=== PATIENT | female | born 1950 | race Caucasian/White ===

== ENCOUNTER 2021-02-12 19:39 | Inpatient (IN) | payer MEDICARE, OTHER ==
[~2021-02-12] VITALS: Ht 154.9 cm; Wt 63.5 kg
[~2021-02-12 19:39] MED LIST: ACET325T53 PO; ASPI-1169 PO; ATOR10TA PO; BISA10SU11 RC; CHOL500062 PO; CLON0.1T PO; CRAN425C6 PO; DOCU-141 PO; INSU100I47 SUBCUT; INSU100V7 SQ; MAGN400O6 PO; MULT-447 PO; NA P133E RC; NIFE60TA2 PO; NUT.237L67 PO; OMEG1CAP PO; VITA100014 PO
--- NOTE | 2021-02-12 19:45 | NUR ---
PATIENT [facility] to ER; sent by SNF - reports coffee ground vomitus x 3 today. PATINET ALERT TO NAME, NON VERBAL. RR EVEN AND UNLABORED. PATIENT CONNECTED TO COMPENSATION AND BENEFITS MANAGER AND POX. WILL CONTINUE TO MONITOR.
--- NOTE | 2021-02-12 19:50 | NUR ---
F/C APPILED Fr 16, URINE OUTPUT 100CC, YELLOW CLEAR COLOR.
[2021-02-12] MEDS ORDERED: FAMOTIDINE/PF INJ 20 MG/2 ML VIAL IV ONE ×2 (20:00→20:03)
[2021-02-12] MEDS ORDERED: PANTOPRAZOLE 40 MG VIAL IV ONE (20:00)
[2021-02-12] MEDS ORDERED: IV NS 0.9% 1,000 ML BAG IV ONE (20:00)
[2021-02-12] MEDS ORDERED: ONDANSETRON HCL/PF 4 MG/2 ML VIAL IVP ONE (20:00)
[2021-02-12] MEDS ORDERED: PANTOPRAZOLE 40 MG VIAL ONE (20:03)
[2021-02-12] MEDS ORDERED: ONDANSETRON HCL/PF 4 MG/2 ML VIAL ONE (20:03)
[2021-02-12 20:19] LABS: BASOPHILS % (AUTO) 0.3 % (0.0-2.0); EOSINOPHILS % (AUTO) 0.7 % (0.0-6.0); HEMATOCRIT 33 % (33-45); HEMOGLOBIN 11.3 g/dL (11.5-14.8); LYMPHOCYTES # (AUTO) 1.5 K/uL (0.8-4.8); LYMPHOCYTES % (AUTO) 15.9 % (20.0-44.0); MEAN CORPUSCULAR HGB CONC 34 g/dl (31.0-36.0); MEAN CORPUSCULAR VOLUME 87 fL (82-100); MONOCYTES # (AUTO) 0.7 K/uL (0.1-1.30); MONOCYTES % (AUTO) 7.4 % (2.0-12.0); NEUTROPHILS # (AUTO) 7.3 K/uL (1.8-8.9); NEUTROPHILS % (AUTO) 75.7 % (43.0-81.0); PLATELET COUNT (AUTO) 222 K/uL (150-450); RED BLOOD CELL COUNT(AUTO) 3.79 MIL/uL (4.0-5.2); WHITE BLOOD COUNT (AUTO) 9.6 K/uL (4.3-11.0)
--- NOTE | 2021-02-12 20:19 | NUR ---
X RAY AT BEDSIDE
[2021-02-12 20:30] LABS: CALCIUM, SERUM 9.2 mg/dL (8.5-10.1); CARBON DIOXIDE 32 mmol/L (21-32); CHLORIDE 114 mmol/L (98-107); CREATININE 2.1 mg/dL (0.6-1.3); GLUCOSE 136 mg/dL (74-106); POTASSIUM 4.1 mmol/L (3.5-5.1); SODIUM SERUM 153 mmol/L (136-145); UREA NITROGEN, BLOOD 33 mg/dL (7-18)
--- NOTE | 2021-02-12 20:32 | NUR ---
called Dr. Whittington - - called - not recreational assistant - [facility] is covering
--- NOTE | 2021-02-12 20:35 | NUR ---
called [facility] - called via exchange
[2021-02-12 20:36] LABS: ALANINE AMINOTRANSFERASE 20 U/L (12-78); ALBUMIN 3.1 g/dL (3.4-5.0); ALKALINE PHOSPHATASE 58 U/L (46-116); ASPARTATE AMINOTRANSFERASE 21 U/L (15-37); BILIRUBIN,DIRECT 0.2 mg/dL (0.0-0.2); BILIRUBIN,TOTAL 0.7 mg/dL (0.2-1.0); LIPASE 31 U/L (73-393); TOTAL PROTEIN, SERUM 6.9 g/dL (6.4-8.2)
--- NOTE | 2021-02-12 20:50 | NUR ---
accepted by Shonda PAIGE
--- NOTE | 2021-02-12 20:50 | NUR ---
Report given to the floor nurse JAGJIT FREEMAN PCR - pending
[2021-02-12] MEDS ORDERED: CEFTRIAXONE 1GM BAG (ER ONLY) 1 GM/50 ML PIGGYBACK IV ONE (21:00)
[2021-02-12 21:02] LABS: BILIRUBIN,URINE SMALL (NEGATIVE); COLOR,URINE YELLOW (YELLOW); LEUKOCYTE ESTERASE ,URINE TRACE (NEGATIVE); NITRITE, URINE NEGATIVE (NEGATIVE); PH,URINE 7.5 (5.0-8.0); PROTEIN,URINE >=300 mg/dl (NEGATIVE); UGLUCOSE NEGATIVE (NEGATIVE); UROBILINOGEN,URINE 0.2 EU/dL (0.2)
[2021-02-12 21:20] VITALS: BP 134/80
--- NOTE | 2021-02-12 21:20 | NUR ---
MS NURSE NOTE PT TRANSPORTED VIA GURNEY TO UNIT AT THIS TIME. PT ADMITTED TO MED SURG FROM ER FOR GI BLEED. PT IS IN BED WITH EYES CLOSED, AROUSABLE TO VERBAL STIMULATION. A/O X1 TO NAME. PT IS STABLE ON ROOM AIR. NO SOB OR S/S OF RESPIRATORY DISTRESS NOTED. NO S/O PAIN SUCH FACIAL GRIMACING NOTED. IV ACCESS IN RIGHT WRIST #20, INTACT AND PATENT. GARCIA CATH IN PLACE DRAINING CLEAR YELLOW URINE. SAFETY AND ASPIRATION PRECAUTIONS MAINTAINED. BED IN LOWEST LOCKED POSITION, HOB ELEVATED, SIDE RAILS UP X3, BED ALARM ON. CALL LIGHT AND TABLE WITHIN REACH. WILL CONTINUE TO MONITOR.
[2021-02-12 21:27] LABS: BACTERIA,URINE RARE /HPF (None Seen)
[2021-02-12] MEDS ORDERED: CEFTRIAXONE 1GM BAG (ER ONLY) 50 ML IV ONE (21:44)
[2021-02-12] MEDS ORDERED: CLONIDINE HCL 0.1 MG TABLET PO PRN (22:00)
[2021-02-12] MEDS ORDERED: IV NS 0.9% 1,000 ML IV PRN (22:00)
[2021-02-12] MEDS ORDERED: Z GUARD REMEDY 2 OZ OINT TP PRN (22:00)
[2021-02-12] MEDS ORDERED: ZOLPIDEM TARTRATE 5 MG TABLET PO PRN (22:00)
[2021-02-12] MEDS ORDERED: ONDANSETRON HCL/PF 4 MG/2 ML VIAL IVP PRN (22:00)
[2021-02-12] MEDS ORDERED: BISACODYL SUPP (10 MG) 10 MG/SUPP.RECT SUPP.RECT RC PRN (22:00)
[2021-02-12] MEDS ORDERED: MAG HYDROX/AL HYDROX/SIMETH 30 ML UDC PO PRN (22:00)
[2021-02-12] MEDS ORDERED: MAGNESIUM HYDROXIDE 30 ML UDC PO PRN ×2 (22:00)
[2021-02-12] MEDS ORDERED: ACETAMINOPHEN 325 MG TABLET PO PRN ×2 (22:00)
[2021-02-12] MEDS ORDERED: NA PHOS,M-B/NA PHOS,DI-BA 1 EA ENEMA RC PRN (22:00)
[2021-02-12] MEDS: ATORVASTATIN 10 MG TABLET PO SCH (22:48)
[2021-02-13] MEDS ORDERED: DEXTROSE 50%-WATER 50 ML DISP.SYRIN IV PRN (03:00)
[2021-02-13] MEDS ORDERED: IV 1/2NS 1000 ML 1,000 ML IV PRN (03:00)
[2021-02-13 04:39] VITALS: BP 154/65
[2021-02-13 05:00] VITALS: BP 154/65
--- NOTE | 2021-02-13 06:07 | NUR ---
MS RN CLOSING NOTE PT IS IN BED WITH EYES CLOSED, AROUSABLE TO STIMULATION. A/O X1. PT IS STABLE ON ROOM AIR. NO SOB OR S/S OF RESPIRATORY DISTRESS NOTED. IV ACCESS IS INTACT, PATENT, AND FLUSHING WELL. ALL NEEDS HAVE BEEN MET. SAFEY AND ASPIRATION PRECAUTIONS MAINTAINED AT ALL TIMES. BED IN LOWEST LOCKED POSITION, HOB ELEVATED, SIDE RAILS UP X2, BED ALARM ON. WILL ENDORSE TO ONCOMING NURSE FOR ERYN.
[2021-02-13 06:39] LABS: BASOPHILS % (AUTO) 0.4 % (0.0-2.0); EOSINOPHILS % (AUTO) 1.8 % (0.0-6.0); HEMATOCRIT 30 % (33-45); HEMOGLOBIN 9.8 g/dL (11.5-14.8); LYMPHOCYTES # (AUTO) 1.6 K/uL (0.8-4.8); LYMPHOCYTES % (AUTO) 22.4 % (20.0-44.0); MEAN CORPUSCULAR HGB CONC 33 g/dl (31.0-36.0); MEAN CORPUSCULAR VOLUME 89 fL (82-100); MONOCYTES # (AUTO) 0.7 K/uL (0.1-1.30); MONOCYTES % (AUTO) 9.6 % (2.0-12.0); NEUTROPHILS # (AUTO) 4.8 K/uL (1.8-8.9); NEUTROPHILS % (AUTO) 65.8 % (43.0-81.0); PLATELET COUNT (AUTO) 168 K/uL (150-450); RED BLOOD CELL COUNT(AUTO) 3.31 MIL/uL (4.0-5.2); WHITE BLOOD COUNT (AUTO) 7.3 K/uL (4.3-11.0)
[2021-02-13 07:19] LABS: CALCIUM, SERUM 8.5 mg/dL (8.5-10.1); MAGNESIUM 1.8 mg/dL (1.8-2.4); POTASSIUM 4.1 mmol/L (3.5-5.1)
--- NOTE | 2021-02-13 07:30 | NUR ---
RN NOTE PATIENT OBSERVED IN BED, AWAKE, NONVERBAL, BREATHING EVEN AND UNLABORED, ON IVF / NS @ 90CC INFUSING WELL, HOB ELEVATED, NO N&V NOTED, WILL CONTINUE TO MONITOR PATIENT, SAFETY MEASURES OBSERVED, BED WHEELS LOCK, CALL LIGHT WITHIN REACH.
[2021-02-13] MEDS: INSULIN REGULAR, HUMAN 100 UNIT/ML 3 ML VIAL SQ PRN ×4 (08:40→23:27)
[2021-02-13] MEDS: BLOOD SUGAR DIAGNOSTIC 1 EACH STRIP IN SCH ×4 (08:41→22:30)
[2021-02-13] MEDS: NEPRO VAN 237 ML CAN PO SCH (09:00)
[2021-02-13] MEDS ORDERED: VITAMIN A 10,000 UNIT CAPSULE PO SCH (09:00)
[2021-02-13] MEDS: CHOLECALCIFEROL 1,000 UNIT TABLET (VIT D3) PO SCH (09:00)
[2021-02-13] MEDS ORDERED: ASPIRIN 81 MG TAB.CHEW PO SCH (09:00)
[2021-02-13] MEDS: NIFEdipine XL (30MG) 30 MG TAB PO SCH (09:00)
[2021-02-13] MEDS ORDERED: Medication Not On Formulary EA (Omega-3 Fatty Acids/Fish Oil (Fish Oil 1,000 Mg Capsule) PO SCH (09:00)
[2021-02-13] MEDS: DOCUSATE SODIUM 100 MG CAPSULE PO SCH (09:00)
--- NOTE | 2021-02-13 09:40 | NUR ---
RN NOTE PATIENT ON NPO AT THIS TIME, SHEET TESTER MÓNICA BALDWIN NOTIFIED, HOLD MEDICATION ORDERED, PATIENT ON IVF HYDRATION.
[2021-02-13] MEDS: PANTOPRAZOLE 40 MG VIAL IV SCH ×2 (09:47→22:53)
--- NOTE | 2021-02-13 09:55 | NUR ---
RN NOTE PATIENT AWAKE, RESPONSE VERBALLY AT THIS TIME, A/O X1, NOT IN DISTRESS, WILL CONTINUE TO MONITOR.
[2021-02-13] MEDS: IV D5/0.45 NACL 1,000 ML IV PRN ×2 (12:45→22:53)
[2021-02-13 16:00] VITALS: BP 148/80
--- NOTE | 2021-02-13 18:31 | NUR ---
RN NOTE PATIENT OBSERVED IN BED, AWAKE AND VERBALLY RESPONSIVE, ALERT AND ORIENTED X1, BREATHING EVEN AND UNLABORED, ON ROOM AIR O2 SAT OF 98%, NO PAIN OBSERVED, MADE COMFORTABLE, PATIENT ON NPO AT THIS TIME FOR ASPIRATION PRECAUTION, AFEBRILE AT THIS TIME, NO BLEEDING NOTED, NO NAUSEA AND VOMITING EPISODE DURING THE SHIFT, FOR OCCULT BLOOD TEST, NO BM DURING THE SHIFT, WILL ENDORSE TO NOC SHIFT TO COLLECT, ON IVF HYDRATION D5NS @100CC/HR IV SITE PATENT INFUSING WELL, ON GARCIA CATHETER DRAINING WELL VIA GRAVITY NO HEMATURIA NOTED, WILL CONTINUE TO MONITOR, BED WHEELS LOCK, HOB ELEVATED, CALL LIGHT WITHIN REACH, SAFETY MEASURES OBSERVE, CALL LIGHT WITHIN REACH.
[2021-02-13 20:00] VITALS: BP 128/67
[2021-02-13] MEDS: ATORVASTATIN 10 MG TABLET PO SCH (22:00)
[2021-02-13] MEDS: CEFTRIAXONE 1 G in IV D5W 50 ML IV SCH (22:55)
--- NOTE | 2021-02-14 04:35 | NUR ---
patient npo awake alert x1 has d51/2ns infusing at 100 hr. blood sugar 2200 174 covered with 3 units reg insulin s.q. has f/c draining yellow urine. on ra sat 95%
--- NOTE | 2021-02-14 07:12 | NUR ---
blood sugar 0630 188 not covered yet due at 0730
[2021-02-14 07:29] LABS: BASOPHILS % (AUTO) 0.4 % (0.0-2.0); EOSINOPHILS % (AUTO) 4.7 % (0.0-6.0); HEMATOCRIT 28 % (33-45); HEMOGLOBIN 9.5 g/dL (11.5-14.8); LYMPHOCYTES # (AUTO) 1.7 K/uL (0.8-4.8); LYMPHOCYTES % (AUTO) 25.4 % (20.0-44.0); MEAN CORPUSCULAR HGB CONC 34 g/dl (31.0-36.0); MEAN CORPUSCULAR VOLUME 88 fL (82-100); MONOCYTES # (AUTO) 0.6 K/uL (0.1-1.30); MONOCYTES % (AUTO) 9.5 % (2.0-12.0); PLATELET COUNT (AUTO) 144 K/uL (150-450); RED BLOOD CELL COUNT(AUTO) 3.18 MIL/uL (4.0-5.2); WHITE BLOOD COUNT (AUTO) 6.7 K/uL (4.3-11.0)
[2021-02-14 07:47] LABS: CALCIUM, SERUM 8.4 mg/dL (8.5-10.1); CREATININE 1.5 mg/dL (0.6-1.3); MAGNESIUM 1.6 mg/dL (1.8-2.4); PHOSPHORUS 2.5 mg/dL (2.5-4.9); POTASSIUM 3.7 mmol/L (3.5-5.1)
[2021-02-14 08:19] VITALS: BP 167/73
[2021-02-14] MEDS: BLOOD SUGAR DIAGNOSTIC 1 EACH STRIP IN SCH ×4 (08:21→22:16)
[2021-02-14] MEDS: CHOLECALCIFEROL 1,000 UNIT TABLET (VIT D3) PO SCH (09:00)
[2021-02-14] MEDS: NIFEdipine XL (30MG) 30 MG TAB PO SCH (09:00)
[2021-02-14] MEDS: DOCUSATE SODIUM 100 MG CAPSULE PO SCH (09:00)
[2021-02-14] MEDS: NEPRO VAN 237 ML CAN PO SCH (09:00)
[2021-02-14] MEDS ORDERED: Magnesium 1GM/D5W 100ML PREMIX 100 ML IV SCH (09:30)
[2021-02-14] MEDS: INSULIN REGULAR, HUMAN 100 UNIT/ML 3 ML VIAL SQ PRN ×3 (10:06→22:27)
[2021-02-14] MEDS: IV D5/0.45 NACL 1,000 ML IV PRN (10:13)
[2021-02-14] MEDS: PANTOPRAZOLE 40 MG VIAL IV SCH ×2 (10:13→20:20)
--- NOTE | 2021-02-14 16:13 | NUR ---
MS/RN NOTES DR. ELIZALDE RECOMMENDING PATIENT TO HAVE EGD TUBE PLACEMENT DUE TO PATIENT UNABLE TO SWALLOW ANYTHING VIA MOUTH. RN TOGETHER WITH CHARGE NURSE DUY, CALLED AND NOTIFIED PATIENT'S DAUGHTER ROHAN AND EXPLAINED THAT WE NEEDS CONSENTS. PER ROHAN, SHE CANNOT DECIDE AND GIVE APPROVAL FOR NOW. SHE WANTED FOR US TO GIVE HER TIME TO DECIDE. CHARGE NURSE NOTIFIED OPERATING ROOM TO NOTIFY DR. ELIZALDE OF THE SITUATION. WILL CONTINUE TO MONITOR.
--- NOTE | 2021-02-14 17:00 | NUR ---
MS/RN NOTES PATIENT WILL UNDERGO EGD WITH DR. ELIZALDE. DAUGHTER AGREED TO THE PROCEDURE. ALL CONSENTS SIGNED. PATIENT PICKED UP BY SCREEN MAKING SUPERVISOR FOR THE PROCEDURE.
[2021-02-14] MEDS ORDERED: hydrALAZINE HCL IV 20 MG VIAL ONE (17:24)
[2021-02-14] MEDS: SUCRALFATE 1 G/10 ML UDC GT SCH ×2 (17:30→22:00)
--- NOTE | 2021-02-14 19:00 | NUR ---
MS/RN CLOSING NOTES PATIENT CAME BACK FROM THE OR POST EGD. PATIENT IS DROWSY, EASILY AWAKE BY VERBAL CUES. ALERT X1. STABLE ON ROOM AIR. V/S TAKEN RECORDED- BP-135/60, RR-18, T-98.1, HR-85, 97% RA. NO DISTRESS NO PAIN REPORTED AT THIS TIME. SAFETY PRECAUTIONS IN PLACED. BED LOCKED ON LOWEST POSITION, SIDE RAILS UPX3, CALL LIGHT WITHIN EASY REACH, BED ALARM ON. WILL ENDORSE TO THE NEXT SHIFT FOR CONTINUITY OF CARE.
--- NOTE | 2021-02-14 19:10 | NUR ---
RN NOTE RECEIVED PATIENT IN BED RESTING ALERT ORIENTED X1 VERBALLY RESPONSIVE ON ROOM AIR O2:98% IV SITE IS ON RIGHT FOREARM INTACT PATENT ON IV HYDRATION D51/2NS 100 CC/HR NPO INCONTINENT TO BOWEL/BLADDER, ON GARCIA CATHETER URINE DRAINING YELLOW/CLEAR BY GRAVITY,SAFETY MEASURE IMPLEMENT BED IN LOW POSITION AND LOCKED BED ALARM IS ON CONTINUE TO MONITOR.
[2021-02-14 20:00] VITALS: BP 104/68
[2021-02-14] MEDS: CEFTRIAXONE 1 G in IV D5W 50 ML IV SCH (20:20)
[2021-02-14] MEDS: ATORVASTATIN 10 MG TABLET PO SCH (22:00)
[2021-02-15] MEDS: IV D5/0.45 NACL 1,000 ML IV PRN (03:18)
[2021-02-15 06:34] LABS: BASOPHILS % (AUTO) 0.5 % (0.0-2.0); EOSINOPHILS % (AUTO) 1.5 % (0.0-6.0); HEMATOCRIT 28 % (33-45); HEMOGLOBIN 9.8 g/dL (11.5-14.8); LYMPHOCYTES # (AUTO) 1.4 K/uL (0.8-4.8); LYMPHOCYTES % (AUTO) 24.1 % (20.0-44.0); MEAN CORPUSCULAR HGB CONC 35 g/dl (31.0-36.0); MEAN CORPUSCULAR VOLUME 86 fL (82-100); MONOCYTES # (AUTO) 0.6 K/uL (0.1-1.30); MONOCYTES % (AUTO) 9.9 % (2.0-12.0); NEUTROPHILS # (AUTO) 3.8 K/uL (1.8-8.9); PLATELET COUNT (AUTO) 158 K/uL (150-450); RED BLOOD CELL COUNT(AUTO) 3.25 MIL/uL (4.0-5.2); WHITE BLOOD COUNT (AUTO) 5.9 K/uL (4.3-11.0)
[2021-02-15 06:52] LABS: CALCIUM, SERUM 8.5 mg/dL (8.5-10.1); CREATININE 1.7 mg/dL (0.6-1.3); MAGNESIUM 1.6 mg/dL (1.8-2.4); POTASSIUM 3.8 mmol/L (3.5-5.1)
--- NOTE | 2021-02-15 06:54 | NUR ---
RN NOTE PATIENT REMAINS ON ALERT ORIENTED X1 VERBALLY RESPONSIVE NO SOB NOT ACUTE DISTRESS NOTED SHE IS ON ROOM AIR O2:96% ON GARCIA CATHETER,NPO ALL IV MEDS GIVEN MD ORDERED HELD PO MEDS KEPT CLEAN AND DRY ALL THE TIME,ALL NEED MET ENDORSE NEXT COMING SHIFT FOR CONTINUATION OF CARE.
[2021-02-15] MEDS: BLOOD SUGAR DIAGNOSTIC 1 EACH STRIP IN SCH ×2 (07:30→11:34)
[2021-02-15] MEDS: PANTOPRAZOLE 40 MG VIAL IV SCH (08:10)
[2021-02-15] MEDS: DOCUSATE SODIUM 100 MG CAPSULE PO SCH (08:10)
[2021-02-15] MEDS: CHOLECALCIFEROL 1,000 UNIT TABLET (VIT D3) PO SCH (08:11)
[2021-02-15] MEDS: NIFEdipine XL (30MG) 30 MG TAB PO SCH (08:11)
[2021-02-15] MEDS: SUCRALFATE 1 G/10 ML UDC GT SCH ×2 (08:18→12:15)
[2021-02-15] MEDS: INSULIN REGULAR, HUMAN 100 UNIT/ML 3 ML VIAL SQ PRN ×2 (08:42→11:37)
[2021-02-15 09:00] VITALS: BP 110/72
[2021-02-15] MEDS ORDERED: PANT40TA2 PO (09:03)
[2021-02-15] MEDS ORDERED: SUCR1ORA6 GT (09:03)
[2021-02-15] MEDS: NEPRO VAN 237 ML CAN PO SCH (09:27)
[2021-02-15] MEDS ORDERED: LEVO500T90 PO (11:40)
[2021-02-15] MEDS ORDERED: Magnesium 1GM/D5W 100ML PREMIX 100 ML IV SCH (12:00)
[2021-02-15] MEDS ORDERED: MAGNESIUM OXIDE 400 MG TABLET PO ONE (12:30)
--- NOTE | 2021-02-15 14:35 | NUR ---
RN NOTES PATIENT REMAINS ALERT ORIENTED X2, DAUGHTER VISITED PT SPOKE AND MADE NEEDS KNOWN, NO SOB, NO ACUTE DISTRESS NOTED, ROOM AIR SAT AT 96% , GARCIA CATHETER INTACT, PT KEPT CLEAN AND DRY AND REPOSITIONED PT ALL NEEDS MET IN A TIMELY MANNER
--- NOTE | 2021-02-15 17:30 | NUR ---
RN NOTES PATIENT TRANSFERRED FROM [facility] TO [facility] BY 2 BLENDER SNUFF , PT ALERT AND ORIENTED X1, BREATHING EVEN AND UNLABORED, NO SOB NOTED, ON ROOM AIR O2 SAT OF 96%, NO PAIN OBSERVED, NO RESP DISTRESS NOTED, MADE COMFORTABLE, CONSUMED 50% OF MEAL NO ASPIRATION NOTED , AFEBRILE AT THIS TIME, NO BLEEDING NOTED, NO NAUSEA AND VOMITING EPISODE DURING THE SHIFT, VOID OF 100 CC IN F/C DRAINED AND CLEANED BEFORE TRANSFER OUT TO [facility], NO BM DURING DAY SHIFT, AND GARCIA CATHETER DRAINING WELL VIA GRAVITY NO HEMATURIA NOTED, WILL CONTINUE TO MONITOR, BED WHEELS LOCK, HOB ELEVATED, CALL LIGHT WITHIN REACH, SAFETY MEASURES MAINTAINED , SAFE TRANSFER FROM HOSPITAL TO [facility] , REPORT GIVEN TO SNF [facility]. FAMILY DAUGHTER NOTIFIED OF TRANSFER AND APPROVED.
== END 2021-02-15 17:26 | DRG 391 ==
LOC: ER 19:40 → MEDSG1 21:06
PROVIDERS: ADMIT Nurse Practitioner Acute Care; ATTEND Nurse Practitioner Acute Care
PROC: 0DB68ZX Excision of Stomach, Via Natural or Artificial Opening Endoscopic, Diagnostic (ICD-10-PCS; principal; 2021-02-14)
DX: K21.00 Gastro-esophageal reflux disease with esophagitis, without bleeding (principal); G93.41 Metabolic encephalopathy; N17.0 Acute kidney failure with tubular necrosis; E44.0 Moderate protein-calorie malnutrition; E87.0 Hyperosmolality and hypernatremia; N18.4 Chronic kidney disease, stage 4 (severe); N39.0 Urinary tract infection, site not specified; K29.70 Gastritis, unspecified, without bleeding; E11.22 Type 2 diabetes mellitus with diabetic chronic kidney disease; E83.42 Hypomagnesemia; E86.0 Dehydration; E78.5 Hyperlipidemia, unspecified; F03.90 Unspecified dementia, unspecified severity, without behavioral disturbance, psychotic disturbance, mood disturbance, and anxiety; R13.10 Dysphagia, unspecified; I12.9 Hypertensive chronic kidney disease with stage 1 through stage 4 chronic kidney disease, or unspecified chronic kidney disease; I70.0 Atherosclerosis of aorta; M81.0 Age-related osteoporosis without current pathological fracture; Z79.4 Long term (current) use of insulin; Z79.82 Long term (current) use of aspirin; Z79.899 Other long term (current) drug therapy; Z87.440 Personal history of urinary (tract) infections; B96.89 Other specified bacterial agents as the cause of diseases classified elsewhere; E86.1 Hypovolemia; D64.9 Anemia, unspecified; M89.9 Disorder of bone, unspecified; Z20.822 Contact with and (suspected) exposure to COVID-19
CPT/HCPCS: 36415; 71045-TC; 80048-TC; 80076-TC; 81001; 82962-TC; 83690-TC; 83735-TC; 84100-TC; 84484-TC; 85025-TC; 85730-TC; 86850-TC; 87081-TC; 87086-TC; C9113; G0378; J0360; J0696; J1815; J2405; J2704; J3475; J3490; J7030; J7060; U0003